=== PATIENT | female | born 1965 | race Two or more races ===

== ENCOUNTER 2016-10-31 08:05 | Day surgery (SDC) | payer BC, MEDICAID, OTHER ==
[2016-10-31] MEDS ORDERED: fentaNYL 100 MCG/2 ML SDV ONE (09:22)
[2016-10-31] MEDS ORDERED: Propofol 200 MG/20 ML SDV ONE ×2 (09:22→09:31)
[2016-10-31] MEDS ORDERED: Lactated Ringers 1,000 ML IV SCH (10:00)
[2016-10-31 11:42] VITALS: BP 132/53
--- NOTE | 2016-10-31 18:20 | OR ---
PREOPERATIVE DIAGNOSIS: Hematemesis. POSTOPERATIVE DIAGNOSIS: Normal esophagus, stomach, and duodenum. PROCEDURE PROPOSED: Upper gastrointestinal panendoscopy with antral biopsies. PROCEDURE DONE: Upper gastrointestinal panendoscopy with antral biopsies. INDICATION: This is a 51-year-old female, who relates a history of intermittent hematemesis a couple of times a week that has been going on for 4 months. Sometimes, it will clear up for a while and then it starts up again. She denies any abdominal pain. She denies any symptoms of indigestion or heartburn. She is not on any antiulcer medication and this is her first gastroscopy. TECHNIQUE: The patient was placed in left lateral decubitus position. She was sedated per [employer] with propofol. The flexible gastroscope was then passed transorally and under visualization advanced well into the duodenum. The duodenum and duodenal bulb were unremarkable. The antrum and body of the stomach looked very healthy without inflammation or ulceration. There were no signs of any blood or petechial hemorrhage. The GE junction was also well demarcated without any significant hiatal hernia. The GE junction did not show any signs of GERD. There were no signs of any Schatzki's ring or stenosis and the remainder of esophagus was normal. As the scope was then withdrawn, she tolerated the procedure well. FINAL IMPRESSION: Essentially normal exam of the esophagus stomach and duodenum. PLAN: At this point, there is no visible cause for her symptoms of hematemesis. One would want to consider doing a stool test to see if there is any blood showing up in her stool. Uncertain as to there is anything else that needs to be done. If it truly persists and it is documented to be blood, she may need to have a PillCam done to evaluate the small intestine. I am recommending she follow up with Dr. Ko for further evaluation regarding stool testing and whether she would need a PillCam or not. SCM: 10/31/2016 10:24:58 MODL: 10/31/2016 12:25:48 /[id number]
--- NOTE | 2016-11-13 11:48 | LETTER ---
11/12/2016 Taj Escobar RE: TAJ ESCOBAR : 1965 Dear Taj, The biopsies taken from your stomach did reveal that you have the bacteria known as H pylori, which can cause excess acid. There was also evidence that you do have some chronic gastritis in your stomach. I would recommend that you see your family physician to be placed on a regimen of medication to get rid of this bacteria in your stomach. If you have any further questions regarding this, feel free to call. Respectfully,
== END 2016-10-31 12:30 | disposition home or self-care (01) ==
LOC: VM.SDS 08:05
PROVIDERS: ATTEND Surgery
DX: K29.50 Unspecified chronic gastritis without bleeding (principal); B96.81 Helicobacter pylori [H. pylori] as the cause of diseases classified elsewhere; K31.89 Other diseases of stomach and duodenum; J45.30 Mild persistent asthma, uncomplicated; F33.42 Major depressive disorder, recurrent, in full remission; E78.5 Hyperlipidemia, unspecified; Z79.899 Other long term (current) drug therapy; Z98.890 Other specified postprocedural states
CPT/HCPCS: 43239; J2704; J3010; J7120

== ENCOUNTER 2019-02-26 06:52 | Day surgery (SDC) | payer SELFPAY ==
[~2019-02-26 06:52] MED LIST: Lactated Ringers 1,000 ML IV SCH; Sodium Chloride 0.9% 10 ML Syringe FLUSH PRN
[2019-02-26] MEDS ORDERED: fentaNYL 100 MCG/2 ML SDV ONE (08:06)
[2019-02-26] MEDS ORDERED: Propofol 200 MG/20 ML SDV ONE ×2 (08:07→09:14)
--- NOTE | 2019-02-26 10:19 | OR ---
PRE-OPERATIVE DIAGNOSES: 1. History of colon polyps. Last colonoscopy was 02/2016. 2. Colon cancer screening. POST-OPERATIVE DIAGNOSES: 1. Mild hemorrhoids, otherwise normal colon. 2. Normal distal ileum. PROCEDURE: Colonoscopy. ANESTHESIA: Monitored anesthesia care. BOWEL PREP: Good. DESCRIPTION OF PROCEDURE: Anjana is a 54-year-old female who was brought to the endoscopy suite after discussing risks and benefits of the procedure. Informed consent was obtained for conscious sedation and colonoscopy with or without biopsy and/or polypectomy. We also discussed possibility of missed lesions. Pre-procedure exam was unremarkable. IV, oxygen, and monitors were placed. The patient was placed in the left lateral decubitus position. Sedation was administered and a digital rectal exam was performed and unremarkable except for some mild hemorrhoids, not acutely inflamed. Colonoscope was passed into the rectum and slowly advanced all the way to the cecum. Cecum was viewed and photographed. Ileocecal valve was intubated and distal ileum was normal in appearance. The colonoscope was slowly withdrawn and the mucosa was closed observed in a direct circumferential manner. The ascending colon was unremarkable. The transverse colon was unremarkable. The descending colon was unremarkable. The sigmoid colon was unremarkable. Retroflexion was performed. Rectal mucosa was remarkable for some mild hemorrhoids, not acutely inflamed. Scope was removed. The patient tolerated the procedure well. The patient was monitored until that baseline status. Discharge instructions were reviewed and the patient was discharged in good condition. COMPLICATIONS: None. TOTAL TIME: 24 minutes. ESTIMATED BLOOD LOSS: None. RECOMMENDATIONS/FOLLOW-UP: Given the patient's previous history of colon polyps, I would recommend repeating in 5 years. I would like to kindly thank, Dr. Ko, for this referral. DMB: 02/26/2019 09:52:45 MODL: 02/26/2019 10:10:46 /[id number]
[2019-02-26 10:31] VITALS: BP 129/70; PULSE 55
== END 2019-02-26 11:15 | disposition home or self-care (01) ==
LOC: VM.SDS 06:52
PROVIDERS: ATTEND Family Medicine
DX: Z12.11 Encounter for screening for malignant neoplasm of colon (principal); K64.9 Unspecified hemorrhoids; J45.909 Unspecified asthma, uncomplicated; E11.9 Type 2 diabetes mellitus without complications; I10 Essential (primary) hypertension; G43.909 Migraine, unspecified, not intractable, without status migrainosus; F32.9 Major depressive disorder, single episode, unspecified; F41.9 Anxiety disorder, unspecified; Z86.010 Personal history of colon polyps; Z79.899 Other long term (current) drug therapy; Z79.84 Long term (current) use of oral hypoglycemic drugs; Z79.51 Long term (current) use of inhaled steroids
CPT/HCPCS: 00811; 82962; J2704; J3010; J7120